=== PATIENT | male | born 1950 | race Caucasian/White ===

== ENCOUNTER 2017-07-11 15:01 | Observation (INO) | payer BC ==
[2017-07-11] MEDS ORDERED: Hydromorphone 1 mg/ml Ampule IV ONE (15:36)
[2017-07-11] MEDS ORDERED: Pepcid 20 MG VIAL IV ONE ×2 (15:36→16:38)
[2017-07-11] MEDS ORDERED: FEVERALL 650 MG PR STA (15:38)
[2017-07-11] MEDS ORDERED: Sodium Chloride 0.9% 1000 ML 1,000 ML IV SCH ×2 (15:45→21:01)
[2017-07-11 16:28] LABS: BASOPHIL % 0.1 % (0.0-0.4); Basophil (Absolute #) 0.01 (0-0.4); Eosinophil % 3.9 % (0.00-5.0); Eosinophil (Absolute #) 0.38 (0-0.5); Granulocyte Absolute (ANC) 7.37 (1.4-6.9); Granulocytes % 76.4 % (36.0-66.0); Hematocrit 42.2 % (42-50); Hemoglobin 14.2 gm/dl (12.5-18.0); Lymphocyte (Absolute #) 1.07 (1.0-4.6); Lymphocytes % 11.1 % (24.0-44.0); Mean Cell Volume 98.1 fl (78-100); Mean Corpuscular Hgb Concent. 33.6 g/dl (32-36); Mean Platelet Volume 10.2 fl (6-9.5); Monocyte (Absolute #) 0.82 (0.0-1.3); Monocytes % 8.5 % (0.0-12.0); Platelet Count 159 K/mm3 (150-450); Red Cell Distribution Width 13.3 % (11.5-14.0); White Blood Count 9.7 K/mm3 (4.0-10.5)
[2017-07-11 16:37] LABS: ALBUMIN 4.1 g/dL (3.5-5.0); ALKALINE PHOSPHATASE 66 U/L (38-126); ANION GAP 14.9 MEQ/L (5-15); BLOOD UREA NITROGEN 20 mg/dL (9-20); CHLORIDE 101 mmol/L (98-107); Calcium 9.4 mg/dL (8.4-10.2); Carbon Dioxide 26 mmol/L (22-30); Creatinine 1 1.27 mg/dL (0.66-1.25); Glucose 111 mg/dL (74-106); LIPASE 44 U/L (23-300); Potassium 4.8 mmol/L (3.5-5.1); SGOT/AST 19 U/L (17-59); SGPT/ALT 14 U/L (0-50); SODIUM 138 mmol/L (137-145); Total Protein 7.2 g/dL (6.3-8.2)
[2017-07-11] MEDS ORDERED: FEVERALL 650 MG ONE (16:38)
[2017-07-11] MEDS ORDERED: Sodium Chloride 0.9% 1000 ML 1,000 ML ONE (16:39)
[2017-07-11] MEDS ORDERED: DILAUDID 2 MG INJECTION ONE (16:39)
[2017-07-11] MEDS ORDERED: Zosyn 3.375GM/100 Ml D5W 3.375 GM/100 ML IVPB IV STA (17:26)
[2017-07-11] MEDS ORDERED: Zosyn 3.375GM/100 Ml D5W 3.375 GM/100 ML IVPB IV ONE (18:32)
--- NOTE | 2017-07-11 18:50 | ERPHSYRPT ---
- History of Present Illness Time Seen by Provider: 07/11/17 15:28 Historian: patient, family Patient Subjective Stated Complaint: abdominal pain right side Triage Nursing Assessment: pt to er c/o right sided abdominal pain, pt holding his side, reporting diarrhea and increased pain Physician History: CC: abd pain Hx: 67 y/o patient of Dr De Los Santos. Post remote bariatric surgery. He has right abd pain and back pain, worse today. Saw [employer] Trey this AM and had labs and neg flu and cxr. Pain for 2 days off and on, worse today. Fever to 102.7 last night. ALL: None Surg: Gastric bypass, bilateral knees, neck, shoulder Social: nonsmoker Timing/Duration: day(s) (2-3 ) Allergies/Adverse Reactions: adhesive Allergy (Verified 07/11/17 15:16) Home Medications: Albuterol Sulfate [Proair Hfa] 2 puff PO DAILY PRN PRN 06/21/14 [History] Alprazolam [Xanax 0.5 mg] 0.5 mg PO TID 06/21/14 [History] Jamie Cit/D3/K/Mag Ox/Stron/Bor [Theracal D2000 Tablet] 1 each PO DAILY 06/21/14 [ History] Multivitamin [Multivitamins] 1 tab PO DAILY 06/21/14 [History] Hx Tetanus, Diphtheria Vaccination/Date Given: No Hx Influenza Vaccination/Date Given: Yes Hx Pneumococcal Vaccination/Date Given: Yes - Review of Systems Constitutional: Fever, Chills, Fatigue, Malaise, Weakness Eyes: No Symptoms Ears, Nose, & Throat: No Symptoms Respiratory: No Cough, No Dyspnea Cardiac: No Chest Pain Abdominal/Gastrointestinal: Abdominal Pain, Nausea, No Vomiting, No Diarrhea Genitourinary Symptoms: No Dysuria Musculoskeletal: Back Pain Skin: No Rash Neurological: No Headache All Other Systems: Reviewed and Negative - Past Medical History Pertinent Past Medical History: No Neurological History: No Pertinent History ENT History: No Pertinent History Cardiac History: No Pertinent History Respiratory History: No Pertinent History Endocrine Medical History: No Pertinent History Musculoskeletal History: No Pertinent History GI Medical History: No Pertinent History History: No Pertinent History Psycho-Social History: Anxiety Male Reproductive Disorders: No Pertinent History Other Medical History: patient has had gastric bypass - Past Surgical History Past Surgical History: Yes Neuro Surgical History: No Pertinent History Cardiac: No Pertinent History Respiratory: No Pertinent History Gastrointestinal: No Pertinent History Genitourinary: No Pertinent History Musculoskeletal: Amputation Male Surgical History: No Pertinent History Other Surgical History: gastric bypass - Social History Smoking Status: Never smoker How long have you smoked: 35 years Exposure to second hand smoke: No Drug Use: none Patient Lives Alone: No - Nursing Vital Signs Nursing Vital Signs: Initial Vital Signs Temperature 98.2 F 07/11/17 15:18 Pulse Rate 98 H 07/11/17 15:18 Respiratory Rate 20 07/11/17 15:18 Blood Pressure 138/88 07/11/17 15:18 O2 Sat by Pulse Oximetry 100 07/11/17 15:18 Pain Scale Pain Intensity 4 - Physical Exam General Appearance: alert, obese Eye Exam: PERRL/EOMI Ears, Nose, Throat Exam: moist mucous membranes Neck Exam: normal inspection, non-tender, supple Respiratory Exam: normal breath sounds Cardiovascular Exam: regular rate/rhythm Gastrointestinal/Abdomen Exam: soft, tenderness (RUQ and epigastrum with some guarding), No mass Back Exam: normal inspection, No vertebral tenderness Extremity Exam: normal inspection, normal range of motion Neurologic Exam: alert, oriented x 3, cooperative, sensation nml, No motor deficits SpO2 Interpretation: normal SpO2: 98 Oxygen Delivery: Room Air - Course Nursing assessment & vital signs reviewed: Yes EKG Interpreted by Me: RATE (87), A-fib (flutter), NORMAL AXIS, prolonged QT interval (QTc 482), NORMAL QRS, Non-specific ST Changes Ordered Tests: Active Orders 24 hr Category Date Time Status Clean Catch Urine Specimen STAT Care 07/11/17 15:36 Active EKG-ER Only STAT Care 07/11/17 15:36 Active IV Insertion STAT Care 07/11/17 15:36 Active NPO (ED) STAT Care 07/11/17 15:36 Active ABDOMEN AND PELVIS W CONTRAST [CT] Stat Exams 07/11/17 15:38 Taken BLOOD CULTURE Stat Lab 07/11/17 16:05 Received CBC W DIFF Stat Lab 07/11/17 16:00 Completed CMP Stat Lab 07/11/17 16:00 Completed LIPASE Stat Lab 07/11/17 16:00 Completed Lactic Acid Stat Lab 07/11/17 16:15 Completed UA W/RFX UR CULTURE Stat Lab 07/11/17 15:37 Ordered Medication Summary Generic Name Dose Route Start Last Admin Trade Name Kulwinder PRN Reason Stop Dose Admin Sodium Chloride 1,000 mls @ 100 mls/hr 07/11/17 15:45 07/11/17 16:43 Sodium Chloride 0.9% 1000 Ml IV 08/10/17 15:44 100 mls/hr .Q10H WILFRIDO Administration Discontinued Medications Generic Name Dose Route Start Last Admin Trade Name Kulwinder PRN Reason Stop Dose Admin Acetaminophen 975 mg 07/11/17 15:38 07/11/17 16:43 Feverall 650 Mg OH 07/11/17 15:39 975 mg STAT STA Administration Acetaminophen Confirm 07/11/17 16:38 Feverall 650 Mg Administered 07/11/17 16:39 Dose 1,300 mg .ROUTE .STK-MED ONE Famotidine 20 mg 07/11/17 15:36 07/11/17 16:43 Pepcid 20 Mg Vial IV 07/11/17 15:37 20 mg STAT ONE Administration Famotidine Confirm 07/11/17 16:38 Pepcid 20 Mg Vial Administered 07/11/17 16:39 Dose 20 mg IV .STK-MED ONE Hydromorphone HCl 1 mg 07/11/17 15:36 07/11/17 16:54 Hydromorphone 1 Mg/Ml Ampule IV 07/11/17 15:37 1 mg STAT ONE Administration Hydromorphone HCl Confirm 07/11/17 16:39 Dilaudid 2 Mg Injection Administered 07/11/17 16:40 Dose 2 mg .ROUTE .STK-MED ONE Piperacillin Sod/Tazobactam Sod 3.375 gm in 100 mls @ 200 mls/hr 07/11/17 17: 26 07/11/17 18:43 Zosyn 3.375gm/100 Ml D5w IV 07/11/17 17:55 200 mls/hr STAT STA Administration Piperacillin Sod/Tazobactam Sod Confirm 07/11/17 18:32 Zosyn 3.375gm/100 Ml D5w Administered 07/11/17 18:33 Dose 3.375 gm in 100 mls @ ud IV .STK-MED ONE Lab/Rad Data: Laboratory Result Diagrams 07/11/17 16:00 07/11/17 16:00 Laboratory Results 07/11/17 07/11/17 07/11/17 Range/Units 16:15 16:00 16:00 WBC 9.7 (4.0-10.5) K/mm3 RBC 4.30 (4.1-5.6) M/mm3 Hgb 14.2 (12.5-18.0) gm/dl Hct 42.2 (42-50) % MCV 98.1 (78-100) fl MCH 33.0 H (26-32) pg MCHC 33.6 (32-36) g/dl RDW 13.3 (11.5-14.0) % Plt Count 159 (150-450) K/mm3 MPV 10.2 H (6-9.5) fl Gran % 76.4 H (36.0-66.0) % Eos # (Auto) 0.38 (0-0.5) Absolute Lymphs (auto) 1.07 (1.0-4.6) Absolute Monos (auto) 0.82 (0.0-1.3) Lymphocytes % 11.1 L (24.0-44.0) % Monocytes % 8.5 (0.0-12.0) % Eosinophils % 3.9 (0.00-5.0) % Basophils % 0.1 (0.0-0.4) % Absolute Granulocytes 7.37 H (1.4-6.9) Basophils # 0.01 (0-0.4) Sodium 138 (137-145) mmol/L Potassium 4.8 (3.5-5.1) mmol/L Chloride 101 (98-107) mmol/L Carbon Dioxide 26 (22-30) mmol/L Anion Gap 14.9 (5-15) MEQ/L BUN 20 (9-20) mg/dL Creatinine 1.27 H (0.66-1.25) mg/dL Estimated GFR > 60.0 ML/MIN Glucose 111 H (74-106) mg/dL Lactic Acid 1.1 (0.4-2.0) Calcium 9.4 (8.4-10.2) mg/dL Total Bilirubin 0.80 (0.2-1.3) mg/dL AST 19 (17-59) U/L ALT 14 (0-50) U/L Alkaline Phosphatase 66 (38-126) U/L Serum Total Protein 7.2 (6.3-8.2) g/dL Albumin 4.1 (3.5-5.0) g/dL Lipase 44 (23-300) U/L - Progress Progress Note: 07/11/17 18:49 cxrP: Stable nonacute hyperinflated chest with chronic features. CT abd/pelvis: jewel 5:35 PM 07/11/2017: No comps. New medial R lung base infil, ATX, & tiny effusion. Gastric bypass sx & fatty liver. Remaining abd/pel negative. jewel 5:36 PM 07/11/2017: Also punctate gallstones/gravel. 07/11/17 18:59 Prior bariatric surg at [facility]. No hx of atrial fib/flutter and no prior cardiac hx. Called Dr De Los Santos who will plac ein obs for IV abtx. Counseled pt/family regarding: lab results, diagnosis, need for follow-up, rad results - Departure Time of Disposition: 19:00 Departure Disposition: Observation Clinical Impression: RUQ abdominal pain, Atrial flutter, Pneumonia Condition: Fair Critical Care Time: No Referrals: ROSE DE LOS SANTOS [Primary Care Provider] -
[2017-07-11] MEDS ORDERED: Zithromax 500 MG/ 250 ML NaCl Premix 500 MG/250 ML IVPB IV STA (19:02)
[2017-07-11] MEDS ORDERED: Zithromax 500 MG/ 250 ML NaCl Premix 500 MG/250 ML IVPB IV ONE (19:08)
[2017-07-11 19:36] LABS: Appearance CLEAR (CLEAR); Leukocyte Esterase NEGATIVE (NEGATIVE)
[2017-07-11 19:37] LABS: Bilirubin NEGATIVE (NEGATIVE); Blood NEGATIVE Ery/ul (0-5); Glucose NEGATIVE (NEGATIVE); Ketones SMALL (NEGATIVE); Nitrite NEGATIVE (NEGATIVE); Protein,Urine Dip NEGATIVE (Negative); Urobilinogen NORMAL mg/dL (0-1)
[2017-07-11] MEDS ORDERED: TYLENOL 325 MG PO PRN (21:01)
[2017-07-11] MEDS ORDERED: PROVENTIL 2.5 MG/3 ML NEB IH ONE (21:22)
[2017-07-11] MEDS: PROVENTIL 2.5 MG/3 ML NEB IH SCH (21:29)
[2017-07-11] MEDS: DILAUDID 2 MG INJECTION IV PRN (21:50)
[2017-07-11] MEDS ORDERED: xanAX 0.5 MG PO ONE (22:00)
[2017-07-11] MEDS: Pepcid 20 MG VIAL IV SCH (23:30)
[2017-07-12] MEDS: Zosyn 3.375GM/100 Ml D5W 3.375 GM/100 ML IVPB IV SCH ×5 (00:09→23:41)
[2017-07-12] MEDS: DILAUDID 2 MG INJECTION IV PRN (04:54)
[2017-07-12] MEDS ORDERED: PROVENTIL Solution 2.5 MG/0.5 ML IH ONE (06:49)
[2017-07-12] MEDS: PROVENTIL 2.5 MG/3 ML NEB IH SCH ×4 (07:20→20:51)
[2017-07-12] MEDS: Advair Hfa 230/21 Mcg COMMON CANISTER IH SCH ×2 (07:20→20:52)
--- NOTE | 2017-07-12 08:28 | XRAY ---
Indication: Right upper quadrant pain. Fever. Multiple contiguous axial images obtained through the abdomen and pelvis using 80 cc Isovue 370 contrast only. Comparison: None Lung bases demonstrates posterior medial right lower lobe infiltrate/atelectasis and tiny effusion. Left base fibrosis/scarring. Heart is not enlarged. Previous scattered bypass surgery. Noncontrasted stomach and bowel loops appear nonobstructed. Normal appendix. Diffuse fatty liver. A few tiny punctate gallstones/gravel. 1.8 cm left renal cyst. Remaining liver, gallbladder, pancreas, spleen, adrenal glands, kidneys, ureters, and bladder appear unremarkable. Mild aortoiliac calcifications with minimal distal aortic ectasia. No pathologic retroperitoneal lymphadenopathy. Osseous structures demonstrates moderate/advanced multilevel degenerative spondylosis and mild dextrorotoscoliosis centered at the thoracolumbar junction. Impression: 1. Tiny gallstones/gravel. Gallbladder sonogram may yield further information. 2. Fatty liver and left renal cyst. 3. Right lower lobe infiltrate/atelectasis with tiny effusion. Correlate clinically. CT DI 23.68
[2017-07-12] MEDS ORDERED: Sodium Chloride 0.9% 10 ML FLUSH Syringe IV PRN (08:34)
[2017-07-12] MEDS ORDERED: xanAX 0.5 MG PO PRN (08:57)
[2017-07-12] MEDS: Motrin 100 MG/5 ML PO SCH ×3 (09:55→21:46)
[2017-07-12] MEDS: Pepcid 20 MG VIAL IV SCH ×2 (09:56→21:40)
[2017-07-12] MEDS: Singulair 10 MG PO SCH (09:57)
[2017-07-12] MEDS: Protonix 40MG Tablet PO SCH (09:57)
[2017-07-12] MEDS: CLARITIN 10 MG PO SCH (09:57)
[2017-07-12] MEDS ORDERED: NON-FORMULARY ITEM (Cetirizine Hcl [All Day Allergy] 10 MG) PO SCH (10:00)
[2017-07-12] MEDS ORDERED: NON-FORMULARY ITEM (Omeprazole [Omeprazole] 20 MG) PO SCH (10:00)
[2017-07-12] MEDS: Sodium Chloride 0.9% 10 ML FLUSH Syringe IV SCH ×2 (16:13→21:58)
[2017-07-12] MEDS ORDERED: Zithromax 500 MG/ 250 ML NaCl Premix 500 MG/250 ML IVPB IV SCH (22:00)
[2017-07-13 05:55] LABS: Hematocrit 38.5 % (42-50); Hemoglobin 12.6 gm/dl (12.5-18.0); Mean Cell Volume 100.5 fl (78-100); Mean Corpuscular Hgb Concent. 32.7 g/dl (32-36); Mean Platelet Volume 9.7 fl (6-9.5); Platelet Count 156 K/mm3 (150-450); Red Blood Count 3.83 M/mm3 (4.1-5.6); Red Cell Distribution Width 13.1 % (11.5-14.0)
[2017-07-13 06:15] LABS: ALBUMIN 3.5 g/dL (3.5-5.0); ALKALINE PHOSPHATASE 58 U/L (38-126); ANION GAP 12.7 MEQ/L (5-15); BLOOD UREA NITROGEN 17 mg/dL (9-20); CHLORIDE 107 mmol/L (98-107); Calcium 9.1 mg/dL (8.4-10.2); Carbon Dioxide 28 mmol/L (22-30); Creatinine 1 1.16 mg/dL (0.66-1.25); Glucose 108 mg/dL (74-106); Potassium 4.7 mmol/L (3.5-5.1); SGOT/AST 15 U/L (17-59); SGPT/ALT 14 U/L (0-50); SODIUM 143 mmol/L (137-145); Total Protein 6.6 g/dL (6.3-8.2)
[2017-07-13 06:20] LABS: Mean Corpuscular Hemoglobin 32.8 pg (26-32)
[2017-07-13] MEDS: Zosyn 3.375GM/100 Ml D5W 3.375 GM/100 ML IVPB IV SCH (06:31)
[2017-07-13] MEDS: Motrin 100 MG/5 ML PO SCH (06:32)
[2017-07-13] MEDS: Sodium Chloride 0.9% 10 ML FLUSH Syringe IV SCH (06:34)
[2017-07-13] MEDS: Advair Hfa 230/21 Mcg COMMON CANISTER IH SCH (06:53)
[2017-07-13] MEDS: PROVENTIL 2.5 MG/3 ML NEB IH SCH (06:53)
[2017-07-13 07:03] VITALS: PULSE 73; O2SAT 96
[2017-07-13 07:38] VITALS: BP 139/70
--- NOTE | 2017-07-13 08:39 | XRAY ---
Indication: Gallstones. Two-dimensional gallbladder sonogram performed. Comparison: None Gallbladder normally distended with several tiny gallstones in the dependent portion. No gallbladder wall thickening or pericholecystic fluid. Common bile duct measures 5.1 mm. No intrahepatic biliary distention. Remaining visualized portions of the liver, pancreas, and right kidney appear sonographically unremarkable. Right kidney measures 9.8 cm in length. No ascites. Impression: Cholelithiasis without cholecystitis or biliary distention.
[2017-07-13] MEDS: Protonix 40MG Tablet PO SCH (10:02)
[2017-07-13] MEDS: Singulair 10 MG PO SCH (10:02)
[2017-07-13] MEDS: CLARITIN 10 MG PO SCH (10:02)
[2017-07-13] MEDS: Pepcid 20 MG VIAL IV SCH (10:05)
--- NOTE | 2017-07-13 10:42 | PCM.DCORD ---
- Discharge Discharge Date: 07/13/17 Prescriptions: New Amox Tr/Potass Clav. 875 mg [Augmentin 875-125 Tablet] 875 mg PO BID 7 Days #14 tablet Azithromycin [Zithromax] 500 mg PO DAILY 1 Days #1 tablet Continue Alprazolam [Xanax 0.5 mg] 0.5 mg PO BIDPRN PRN PRN Reason: Anxiety Cetirizine HCl [All Day Allergy] 10 mg PO DAILY Omeprazole 20 mg PO DAILY Montelukast Sodium 10 mg [Singulair 10 MG] 10 mg PO DAILY Albuterol Sulfate 2.5 mg IH TID Additional Instructions: May return to work with no restriction Follow up with: ROSE BERNARD [Primary Care Provider] - 1 Week
--- NOTE | 2017-07-15 10:05 | SSS ---
DISCHARGE DIAGNOSIS: PNEUMONIA. HISTORY: The patient is a 67 year-old white male patient who presented to the emergency room with complaints of right sided flank abdominal pain. The patient was seen in the emergency room and found to have pneumonia. He was admitted to the hospital for treatment. The patient did run a fever up to 102.7F last evening. There was concern for him possibly having a gallbladder problem and he did have a stone in the gallbladder but it appears to be more likely that he is suffering from pneumonia. The patient was started on IV antibiotics. PAST MEDICAL/SURGICAL HISTORY: Significant for gastric bypass surgery. HOME MEDICATIONS: ProAir, Alprazolam, multivitamins. ALLERGIES: ADHESIVE TAPE. PHYSICAL EXAMINATION: Revealed a well nourished, well developed 67 year-old white male patient in no obvious distress at this time. VITAL SIGNS: On admission showed his temperature 97.9F, pulse 60, respiratory rate 17, blood pressure 140/75. O2 saturation 97% on room air. He did run a temperature up to 100F during his stay. HEENT: Normocephalic, atraumatic. Pupils equal, round reactive to light. Extraocular movements intact. Oropharynx is pink and moist. NECK: Supple without lymphadenopathy, thyromegaly or JVD. CHEST: Clear to auscultation with good air movement bilaterally. HEART: Regular rate and rhythm without murmurs, rubs or gallops. ABDOMEN: Soft. No palpable masses were felt. EXTREMITIES: Without clubbing, cyanosis or edema. NEUROLOGIC: The patient is alert and oriented x3. No focal deficits are noted. LAB DATA AND TESTS: His EKG showed a sinus rhythm. His blood work showed a metabolic panel with sugar 111, BUN 20, creatinine 1.27 and liver enzymes were normal. Electrolytes were normal. Lactic acid 1.1. His white blood cell count was 9,700. His hemoglobin was 14.2, PLT count 159,000. There appeared to be 76.4% granulocytes. UA was normal. His x-ray studies did show an infiltrate in the right base and possible stones. He had a gallbladder ultrasound showing gallbladder stones but no thickening of the gallbladder wall nor dilation of his gallbladder ducts. HOSPITAL COURSE: The patient after receiving antibiotics was much better by the next morning. He had been receiving Unasyn and Zithromax. He was felt to be ready for discharge home on the morning of 07/13/2017 on Zithromax 500 mg for one more day and Augmentin 875 mg twice a day for an additional week with follow up in the office in one week. He will continue to take his usual home medications otherwise.
== END 2017-07-13 11:13 | disposition home or self-care (01) ==
LOC: ED 15:01 → MED SURG 19:47
PROVIDERS: ADMIT Family Medicine; ATTEND Family Medicine
DX: J18.9 Pneumonia, unspecified organism (principal); Z98.84 Bariatric surgery status
CPT/HCPCS: 36000; 36415; 74177; 76705; 80053; 81002; 83605; 83690; 85025; 85027; 87040; 93005; 93268; 94150; 94640; 94760; 96360; 96361; 96365; 96367; 96374; 96375; 99285; G0378; 99283; J0456; J1170; J2543; A9270-GY

== ENCOUNTER 2019-07-06 12:04 | Inpatient (IN) | payer BC, MEDICARE ==
[2019-07-06] MEDS ORDERED: Sodium Chloride 0.9% 1000 ML 1,000 ML IV SCH (12:15)
[2019-07-06 12:47] LABS: Absolute Neutrophil Ct (ANC) 2.75 (1.4-6.9); BASOPHIL % 0.4 % (0.0-0.4); Basophil (Absolute #) 0.02 (0-0.4); Eosinophil % 8.4 % (0.00-5.0); Eosinophil (Absolute #) 0.41 (0-0.5); Hematocrit 43.1 % (42-50); Hemoglobin 14.2 gm/dl (12.5-18.0); Lymphocyte (Absolute #) 1.15 (1.0-4.6); Lymphocytes % 23.5 % (24.0-44.0); Mean Cell Volume 102.1 fl (78-100); Mean Corpuscular Hemoglobin 33.6 pg (26-32); Mean Corpuscular Hgb Concent. 32.9 g/dl (32-36); Mean Platelet Volume 10.2 fl (7.5-11.0); Monocyte (Absolute #) 0.56 (0.0-1.3); Monocytes % 11.5 % (0.0-12.0); Neutrophil % 56.2 % (36.0-66.0); Platelet Count 139 K/mm3 (150-450); Red Blood Count 4.22 M/mm3 (4.1-5.6); Red Cell Distribution Width 13.5 % (11.5-14.0); White Blood Count 4.9 K/mm3 (4.0-10.5)
[2019-07-06 12:58] LABS: Appearance CLEAR (CLEAR); Bilirubin NEGATIVE (NEGATIVE); Blood NEGATIVE Ery/ul (0-5); Glucose NEGATIVE (NEGATIVE); Ketones NEGATIVE (NEGATIVE); Leukocyte Esterase NEGATIVE (NEGATIVE); Nitrite NEGATIVE (NEGATIVE); Protein,Urine Dip NEGATIVE (Negative); Specific Gravity 1.006 (1.005-1.025); Urobilinogen NEGATIVE mg/dL (0-1)
--- NOTE | 2019-07-06 12:58 | XRAY ---
Indication: Fever and cough. Comparison: July 11, 2017. Portable apical lordotic chest again demonstrates minimal right base subsegmental atelectasis/scarring. Remaining heart and lungs unremarkable. Bony thorax intact again with osteopenia, degenerative changes, lower cervical fusion, and old left 7 rib fracture. Impression: Nonacute chest with chronic features.
[2019-07-06 13:21] LABS: INFLUENZA A NEGATIVE (NEGATIVE); INFLUENZA B NEGATIVE (NEGATIVE); RESPIRATORY SYNCTIAL VIRUS NEGATIVE (Negative)
[2019-07-06 13:25] LABS: PROTIME 11.7 SECONDS (8.83-12.87)
[2019-07-06 13:26] LABS: INR 1.03 (0.8-3.0)
--- NOTE | 2019-07-06 13:34 | ERPHSYRPT ---
- History of Present Illness Time Seen by Provider: 07/06/19 12:30 Patient Subjective Stated Complaint: pt here for increase sob for 3 dasy now with fever, weakness,aches. dry cough Triage Nursing Assessment: pt walked in, resp labored with excertion, skin w/d/p , moves all ext well, slight lower leg edema Physician History: Patient is a 69-year-old male who presents with a complaint of being sick for 3 days. He has had fever to 102 at home extreme shortness of breath weakness body aches and dry cough and it is noted that his respiratory rate increases dramatically with any exertion. He does work at the [place] [facility] [employer] [facility] and is exposed to the [place] [facility] population. Has a history of COPD. And frequent pneumonias. Timing/Duration: day(s) (3) Activities at Onset: none Severity of Dyspnea-Max: moderate Severity of Dyspnea-Current: moderate Possible Cause: occasional episodes (Has occasional episodes of exacerbation of his COPD and pneumonias) Modifying Factors: Improves With: coughing, exertion Associated Symptoms: cough, chest pain/discomfort (Planes of pain in the right chest area with a deep breath), painful breathing International travel in last 2 weeks: No Allergies/Adverse Reactions: adhesive Allergy (Verified 07/06/19 12:34) Home Medications: ALPRAZolam [Xanax 0.5 mg] 0.5 mg PO BIDPRN PRN 06/21/14 [History] Albuterol Sulfate 2.5 mg IH TID 07/11/17 [History] Cetirizine HCl [All Day Allergy] 10 mg PO DAILY 07/11/17 [History] Montelukast Sodium 10 mg [Singulair 10 MG] 10 mg PO DAILY 07/11/17 [History] Omeprazole 20 mg PO DAILY 07/11/17 [History] Hx Tetanus, Diphtheria Vaccination/Date Given: No Hx Influenza Vaccination/Date Given: Yes Hx Pneumococcal Vaccination/Date Given: Yes Immunizations Up to Date: Yes Travel Risk - International Travel Have you traveled outside of the country in past 3 weeks: No (n) Have you or anyone close to you been diagnosed with or: No Do your reside in a community with a known COVID-19 case?: Yes If Yes where:: [facility] - Coronavirus Screening Has patient experienced Coronavirus symptoms: Yes Symptoms experienced: fever(equal or > 100.4 F), respiratory symptoms ( i.e.Cought,shortness of breath), muscle pain, weakness Date of fever onset:: 07/04/19 Date of respiratory symptoms onset:: 07/04/19 - Review of Systems Constitutional: Fever, No Chills Eyes: No Symptoms Ears, Nose, & Throat: No Symptoms Respiratory: Dyspnea on Exertion (BLACK), No Cough, No Dyspnea Cardiac: Chest Pain (Right-sided chest pain), No Edema, No Syncope Abdominal/Gastrointestinal: No Abdominal Pain, No Nausea, No Vomiting, No Diarrhea Genitourinary Symptoms: No Dysuria Musculoskeletal: No Back Pain, No Neck Pain Skin: No Rash Neurological: No Dizziness, No Focal Weakness, No Sensory Changes Psychological: No Symptoms Endocrine: No Symptoms All Other Systems: Reviewed and Negative - Past Medical History Pertinent Past Medical History: No Neurological History: No Pertinent History ENT History: No Pertinent History Cardiac History: No Pertinent History Respiratory History: No Pertinent History Endocrine Medical History: No Pertinent History Musculoskeletal History: No Pertinent History GI Medical History: No Pertinent History History: No Pertinent History Psycho-Social History: Anxiety Male Reproductive Disorders: No Pertinent History Other Medical History: patient has had gastric bypass - Past Surgical History Past Surgical History: Yes Neuro Surgical History: No Pertinent History Cardiac: No Pertinent History Respiratory: No Pertinent History Gastrointestinal: No Pertinent History Genitourinary: No Pertinent History Musculoskeletal: Joint Replacement, Other Male Surgical History: No Pertinent History Other Surgical History: gastric bypass, Jae knee replacement, shoulder, neck - Social History Smoking Status: Former smoker How long have you smoked: 35 years Exposure to second hand smoke: No Drug Use: none Patient Lives Alone: No - Nursing Vital Signs Nursing Vital Signs: Initial Vital Signs Temperature 97.7 F 07/06/19 12:16 Pulse Rate 69 07/06/19 12:16 Respiratory Rate 32 H 07/06/19 12:16 Blood Pressure 138/73 07/06/19 12:16 O2 Sat by Pulse Oximetry 96 07/06/19 12:16 Pain Scale Pain Intensity 4 - Physical Exam General Appearance: no apparent distress, alert Eye Exam: PERRL/EOMI Neck Exam: normal inspection, supple Respiratory Exam: crackles/rales Cardiovascular/Chest Exam: normal heart sounds, regular rate/rhythm Abdominal/Gastrointestinal Exam: soft, No tenderness, No distention, No mass Extremity Exam: non-tender, normal range of motion, normal inspection, no calf tenderness, no pedal edema Neurologic Exam: alert, oriented x 3, cooperative, trial court justice II-XII nml as tested, sensation nml, No motor deficits Skin Exam: normal color, warm, No dry SpO2 Interpretation: normal SpO2: 95 O2 Delivery: Room Air - Course Nursing assessment & vital signs reviewed: Yes EKG Interpreted by Me: RATE ([id number]), NORMAL AXIS, NORMAL INTERVALS, NORMAL QRS, NORMAL ST-T - Radiology Exams Chest X-ray Interpretation: Teleradiologist Report, No Pneumonia Ordered Tests: Active Orders 24 hr Category Date Time Status [employer] Work[employer] STAT Care 07/06/19 12:40 Active EKG-ER Only STAT Care 07/06/19 12:11 Active IV Insertion STAT Care 07/06/19 12:11 Active IV Insertion-2nd Peripheral STAT Care 07/06/19 12:40 Active Pulse Oximetry (ED) STAT Care 07/06/19 12:40 Active CHEST 1 VIEW (PORTABLE) Stat Exams 07/06/19 12:11 Completed BLOOD CULTURE Stat Lab 07/06/19 12:40 Received CBC W DIFF Stat Lab 07/06/19 12:30 Completed CMP Stat Lab 07/06/19 12:30 Completed D-DIMER QUANTITATIVE Stat Lab 07/06/19 12:30 Completed Ferritin Stat Lab 07/06/19 12:30 Completed LDH-LACTATE DEHYDROGENASE Stat Lab 07/06/19 12:30 Completed Lactic Acid Stat Lab 07/06/19 12:11 Completed MAGNESIUM Stat Lab 07/06/19 12:30 Completed NT PRO BNP Stat Lab 07/06/19 12:30 Completed PROTIME WITH INR Stat Lab 07/06/19 12:30 Completed PTT Stat Lab 07/06/19 12:30 Completed TROPONIN Q3H Lab 07/06/19 12:30 Completed TROPONIN Q3H Lab 07/06/19 15:15 Ordered TROPONIN Q3H Lab 07/06/19 18:15 Ordered TROPONIN Q3H Lab 07/06/19 21:15 Ordered TROPONIN Q3H Lab 07/07/19 00:15 Ordered UA W/RFX UR CULTURE Stat Lab 07/06/19 12:30 Completed Medication Summary Generic Name Dose Route Start Last Admin Trade Name Freq PRN Reason Stop Dose Admin Sodium Chloride 1,000 mls @ 100 mls/hr 07/06/19 12:15 07/06/19 12:22 Sodium Chloride 0.9% 1000 Ml IV 08/05/19 12:14 100 mls/hr .Q10H WILFRIDO Administration Lab/Rad Data: Laboratory Result Diagrams 07/06/19 12:30 07/06/19 12:30 Laboratory Results 07/06/19 07/06/19 07/06/19 Range/Units 12:30 12:30 12:30 WBC (4.0-10.5) K/mm3 RBC (4.1-5.6) M/mm3 Hgb (12.5-18.0) gm/dl Hct (42-50) % MCV (78-100) fl MCH (26-32) pg MCHC (32-36) g/dl RDW (11.5-14.0) % Plt Count (150-450) K/mm3 MPV (7.5-11.0) fl Gran % (36.0-66.0) % Eos # (Auto) (0-0.5) Absolute Lymphs (auto) (1.0-4.6) Absolute Monos (auto) (0.0-1.3) Lymphocytes % (24.0-44.0) % Monocytes % (0.0-12.0) % Eosinophils % (0.00-5.0) % Basophils % (0.0-0.4) % Absolute Granulocytes (1.4-6.9) Basophils # (0-0.4) PT (8.83-12.87) SECONDS INR (0.8-3.0) APTT (24.1-36.1) SECONDS D-Dimer (215-500) ng/mL Sodium (137-145) mmol/L Potassium (3.5-5.1) mmol/L Chloride (98-107) mmol/L Carbon Dioxide (22-30) mmol/L Anion Gap (5-15) MEQ/L BUN (9-20) mg/dL Creatinine (0.66-1.25) mg/dL Estimated GFR ML/MIN Glucose (74-106) mg/dL Lactic Acid (0.4-2.0) Calcium (8.4-10.2) mg/dL Magnesium (1.6-2.3) mg/dL Ferritin (17.9-464) ng/mL Total Bilirubin (0.2-1.3) mg/dL AST (17-59) U/L ALT (0-50) U/L Alkaline Phosphatase (38-126) U/L Lactate Dehydrogenase (120-246) U/L Troponin I (0.000-0.034) ng/mL NT-Pro-B Natriuret Pep (0-900) pg/mL Serum Total Protein (6.3-8.2) g/dL Albumin (3.5-5.0) g/dL Urine Color YELLOW (YELLOW) Urine Appearance CLEAR (CLEAR) Urine pH 6.0 (5-6) Ur Specific [place] 1.006 (1.005-1.025) Urine Protein NEGATIVE (Negative) Urine Ketones NEGATIVE (NEGATIVE) Urine Blood NEGATIVE (0-5) Rell/ul Urine Nitrite NEGATIVE (NEGATIVE) Urine Bilirubin NEGATIVE (NEGATIVE) Urine Urobilinogen NEGATIVE (0-1) mg/dL Ur Leukocyte Esterase NEGATIVE (NEGATIVE) Urine WBC (Auto) NONE (0-5) /HPF Urine RBC (Auto) NONE (0-2) /HPF U Epithel Cells (Auto) NONE (FEW) /HPF Urine Bacteria (Auto) NONE (NEGATIVE) /HPF Urine Culture Reflexed NO (NO) Urine Glucose NEGATIVE (NEGATIVE) mg/dL Influenza Type A Ag NEGATIVE (NEGATIVE) Influenza Type B Ag NEGATIVE (NEGATIVE) RSV (PCR) NEGATIVE (Negative) Group A Strep Antibody NOT DETECTED (NEGATIVE) 07/06/19 07/06/19 07/06/19 Range/Units 12:30 12:30 12:30 WBC (4.0-10.5) K/mm3 RBC (4.1-5.6) M/mm3 Hgb (12.5-18.0) gm/dl Hct (42-50) % MCV (78-100) fl MCH (26-32) pg MCHC (32-36) g/dl RDW (11.5-14.0) % Plt Count (150-450) K/mm3 MPV (7.5-11.0) fl Gran % (36.0-66.0) % Eos # (Auto) (0-0.5) Absolute Lymphs (auto) (1.0-4.6) Absolute Monos (auto) (0.0-1.3) Lymphocytes % (24.0-44.0) % Monocytes % (0.0-12.0) % Eosinophils % (0.00-5.0) % Basophils % (0.0-0.4) % Absolute Granulocytes (1.4-6.9) Basophils # (0-0.4) PT 11.7 (8.83-12.87) SECONDS INR 1.03 (0.8-3.0) APTT 32.0 (24.1-36.1) SECONDS D-Dimer 486 (215-500) ng/mL Sodium 139 (137-145) mmol/L Potassium 4.7 (3.5-5.1) mmol/L Chloride 107 (98-107) mmol/L Carbon Dioxide 24 (22-30) mmol/L Anion Gap 12.3 (5-15) MEQ/L BUN 18 (9-20) mg/dL Creatinine 1.27 H (0.66-1.25) mg/dL Estimated GFR > 60.0 ML/MIN Glucose 107 H (74-106) mg/dL Lactic Acid (0.4-2.0) Calcium 9.3 (8.4-10.2) mg/dL Magnesium 1.5 L (1.6-2.3) mg/dL Ferritin 344 (17.9-464) ng/mL Total Bilirubin 0.50 (0.2-1.3) mg/dL AST 41 (17-59) U/L ALT 31 (0-50) U/L Alkaline Phosphatase 78 (38-126) U/L Lactate Dehydrogenase 197 (120-246) U/L Troponin I 0.014 (0.000-0.034) ng/mL NT-Pro-B Natriuret Pep 556 (0-900) pg/mL Serum Total Protein 7.3 (6.3-8.2) g/dL Albumin 4.2 (3.5-5.0) g/dL Urine Color (YELLOW) Urine Appearance (CLEAR) Urine pH (5-6) Ur Specific [place] (1.005-1.025) Urine Protein (Negative) Urine Ketones (NEGATIVE) Urine Blood (0-5) Rell/ul Urine Nitrite (NEGATIVE) Urine Bilirubin (NEGATIVE) Urine Urobilinogen (0-1) mg/dL Ur Leukocyte Esterase (NEGATIVE) Urine WBC (Auto) (0-5) /HPF Urine RBC (Auto) (0-2) /HPF U Epithel Cells (Auto) (FEW) /HPF Urine Bacteria (Auto) (NEGATIVE) /HPF Urine Culture Reflexed (NO) Urine Glucose (NEGATIVE) mg/dL Influenza Type A Ag (NEGATIVE) Influenza Type B Ag (NEGATIVE) RSV (PCR) (Negative) Group A Strep Antibody (NEGATIVE) 07/06/19 07/06/19 Range/Units 12:30 12:11 WBC 4.9 (4.0-10.5) K/mm3 RBC 4.22 (4.1-5.6) M/mm3 Hgb 14.2 (12.5-18.0) gm/dl Hct 43.1 (42-50) % MCV 102.1 H (78-100) fl MCH 33.6 H (26-32) pg MCHC 32.9 (32-36) g/dl RDW 13.5 (11.5-14.0) % Plt Count 139 L (150-450) K/mm3 MPV 10.2 (7.5-11.0) fl Gran % 56.2 (36.0-66.0) % Eos # (Auto) 0.41 (0-0.5) Absolute Lymphs (auto) 1.15 (1.0-4.6) Absolute Monos (auto) 0.56 (0.0-1.3) Lymphocytes % 23.5 L (24.0-44.0) % Monocytes % 11.5 (0.0-12.0) % Eosinophils % 8.4 H (0.00-5.0) % Basophils % 0.4 (0.0-0.4) % Absolute Granulocytes 2.75 (1.4-6.9) Basophils # 0.02 (0-0.4) PT (8.83-12.87) SECONDS INR (0.8-3.0) APTT (24.1-36.1) SECONDS D-Dimer (215-500) ng/mL Sodium (137-145) mmol/L Potassium (3.5-5.1) mmol/L Chloride (98-107) mmol/L Carbon Dioxide (22-30) mmol/L Anion Gap (5-15) MEQ/L BUN (9-20) mg/dL Creatinine (0.66-1.25) mg/dL Estimated GFR ML/MIN Glucose (74-106) mg/dL Lactic Acid 1.3 (0.4-2.0) Calcium (8.4-10.2) mg/dL Magnesium (1.6-2.3) mg/dL Ferritin (17.9-464) ng/mL Total Bilirubin (0.2-1.3) mg/dL AST (17-59) U/L ALT (0-50) U/L Alkaline Phosphatase (38-126) U/L Lactate Dehydrogenase (120-246) U/L Troponin I (0.000-0.034) ng/mL NT-Pro-B Natriuret Pep (0-900) pg/mL Serum Total Protein (6.3-8.2) g/dL Albumin (3.5-5.0) g/dL Urine Color (YELLOW) Urine Appearance (CLEAR) Urine pH (5-6) Ur Specific [place] (1.005-1.025) Urine Protein (Negative) Urine Ketones (NEGATIVE) Urine Blood (0-5) Rell/ul Urine Nitrite (NEGATIVE) Urine Bilirubin (NEGATIVE) Urine Urobilinogen (0-1) mg/dL Ur Leukocyte Esterase (NEGATIVE) Urine WBC (Auto) (0-5) /HPF Urine RBC (Auto) (0-2) /HPF U Epithel Cells (Auto) (FEW) /HPF Urine Bacteria (Auto) (NEGATIVE) /HPF Urine Culture Reflexed (NO) Urine Glucose (NEGATIVE) mg/dL Influenza Type A Ag (NEGATIVE) Influenza Type B Ag (NEGATIVE) RSV (PCR) (Negative) Group A Strep Antibody (NEGATIVE) - Progress Progress: unchanged Air Movement: good Blood Culture(s) Obtained: Yes Antibiotics given: Yes - Departure Departure Disposition: Observation Clinical Impression: COPD exacerbation Condition: Fair Critical Care Time: No
[2019-07-06 13:37] LABS: ALBUMIN 4.2 g/dL (3.5-5.0); ALKALINE PHOSPHATASE 78 U/L (38-126); ANION GAP 12.3 MEQ/L (5-15); BLOOD UREA NITROGEN 18 mg/dL (9-20); CHLORIDE 107 mmol/L (98-107); Calcium 9.3 mg/dL (8.4-10.2); Carbon Dioxide 24 mmol/L (22-30); Creatinine 1 1.27 mg/dL (0.66-1.25); Ferritin 344 ng/mL (17.9-464); Glucose 107 mg/dL (74-106); LDH-LACTATE DEHYDROGENASE 197 U/L (120-246); MAGNESIUM 1.5 mg/dL (1.6-2.3); NT PRO BNP 556 pg/mL (0-900); Potassium 4.7 mmol/L (3.5-5.1); SGOT/AST 41 U/L (17-59); SGPT/ALT 31 U/L (0-50); SODIUM 139 mmol/L (137-145); Total Protein 7.3 g/dL (6.3-8.2)
[2019-07-06] MEDS ORDERED: LEVOFLOXACIN 750MG/150ML D5W 750 MG/150 ML BAG IV SCH (17:00)
[2019-07-06] MEDS: ROCEPHIN 1 Gm-D5w 50 ml Bag** 1 G/50 ML IVPB IV SCH (18:09)
[2019-07-06] MEDS: TYLENOL 325 MG PO PRN (19:03)
[2019-07-06] MEDS: Advair Hfa 230/21 Mcg COMMON CANISTER IH SCH (20:25)
[2019-07-06] MEDS ORDERED: VENTOLIN COMMON CANISTER IH PRN (21:48)
[2019-07-07] MEDS: TYLENOL 325 MG PO PRN ×2 (04:27→19:06)
[2019-07-07 06:19] LABS: ALBUMIN 3.9 g/dL (3.5-5.0); ALKALINE PHOSPHATASE 65 U/L (38-126); ANION GAP 15.3 MEQ/L (5-15); BLOOD UREA NITROGEN 18 mg/dL (9-20); CHLORIDE 105 mmol/L (98-107); Calcium 8.6 mg/dL (8.4-10.2); Carbon Dioxide 23 mmol/L (22-30); Creatinine 1 1.21 mg/dL (0.66-1.25); Glucose 103 mg/dL (74-106); MAGNESIUM 1.4 mg/dL (1.6-2.3); Potassium 4.3 mmol/L (3.5-5.1); SGOT/AST 35 U/L (17-59); SGPT/ALT 26 U/L (0-50); SODIUM 140 mmol/L (137-145); Total Protein 6.9 g/dL (6.3-8.2)
[2019-07-07 06:20] LABS: Hematocrit 42.7 % (42-50); Hemoglobin 13.9 gm/dl (12.5-18.0); Mean Cell Volume 102.4 fl (78-100); Mean Corpuscular Hemoglobin 33.3 pg (26-32); Mean Corpuscular Hgb Concent. 32.6 g/dl (32-36); Mean Platelet Volume 10.2 fl (7.5-11.0); Platelet Count 119 K/mm3 (150-450); Red Blood Count 4.17 M/mm3 (4.1-5.6); Red Cell Distribution Width 13.4 % (11.5-14.0); White Blood Count 3.8 K/mm3 (4.0-10.5)
[2019-07-07] MEDS: Advair Hfa 230/21 Mcg COMMON CANISTER IH SCH (07:07)
[2019-07-07] MEDS: ROCEPHIN 1 Gm-D5w 50 ml Bag** 1 G/50 ML IVPB IV SCH (09:35)
--- NOTE | 2019-07-07 11:26 | PCM.HP ---
History of Present Illness - Chief Complaint Chief Complaint: copd exacerbation History of Present Illness: is a 69 year old male who presented to the ER yesterday with a 3 day history of cough, fever and fatigue with some shortness of breath with exertion. He has some underlying copd, is a former smoker. he does have obstructive sleep apnea and wears a cpap at night but is on no supplemental oxygen at home. his cough is nonproductive, he had sharp pain on the right yesterday with cough or deep breath but reports this is significantly improved and he feels better today than he did yesterday. - Review of Systems Constitutional: Fever, Chills Respiratory: Cough, Short Of Breath Cardiac: No Chest Pain, No Edema, No Syncope Abdominal/Gastrointestinal: No Abdominal Pain, No Nausea, No Vomiting, No Diarrhea Genitourinary Symptoms: No Dysuria Skin: No Rash All Other Systems: Reviewed and Negative Medications & Allergies Home Medications: Home Medication List ALPRAZolam [Xanax 0.5 mg] 0.5 mg PO TIDPRN PRN 06/21/14 [History Confirmed 07/05] Albuterol Sulfate 2.5 mg IH TID 07/11/17 [History Confirmed 07/06/19] Cetirizine HCl [All Day Allergy] 10 mg PO DAILY 07/11/17 [History Confirmed 06/21] Montelukast Sodium 10 mg [Singulair 10 MG] 10 mg PO DAILY 07/11/17 [History Confirmed 07/06/19] Omeprazole 20 mg PO DAILY 07/11/17 [History Confirmed 07/06/19] Amox Tr/Potass Clav. 875 mg [Augmentin 875-125 Tablet] 875 mg PO BID 7 Days #14 tablet 07/13/17 [Rx Confirmed 07/06/19] Azithromycin [Zithromax] 500 mg PO DAILY 1 Days #1 tablet 07/13/17 [Rx Confirmed 07/06/19] Atorvastatin Calcium 20 mg PO DAILY 07/06/19 [History Confirmed 07/06/19] Fluticasone/Salmeterol 230/21* [Advair Hfa 230/21 Mcg MDI] 2 inh IH BID 07/05 [History Confirmed 07/06/19] Furosemide 20 mg [Lasix 20 mg] 20 mg PO DAILY 07/06/19 [History Confirmed 07/06/19] Lisinopril 5 mg [Zestril 5 MG] 2.5 mg PO DAILY 07/06/19 [History Confirmed 07/06/19] Potassium Chloride [Klor-Con M20] 20 meq PO DAILY 07/06/19 [History Confirmed ] Temazepam 30 mg PO QHS 07/06/19 [History Confirmed 07/06/19] Allergies/Adverse Reactions: Allergies Allergy/AdvReac Type Severity Reaction Status Date / Time adhesive Allergy Verified 07/06/19 12:34 - Past Medical History Past Medical History: No Neurological History: No Pertinent History ENT History: No Pertinent History Cardiac History: High Cholesterol Respiratory History: COPD Endocrine Medical History: No Pertinent History Musculoskelatal History: No Pertinent History GI Medical History: GERD History: No Pertinent History Pyscho-Social History: Anxiety Male Reproductive Disorders: No Pertinent History Comment: patient has had gastric bypass, jae knee, cervical fusion, Atrial fibrillation - Past Surgical History Past Surgical History: Yes Neuro Surgical History: No Pertinent History Cardiac History: No Pertinent History Respiratory Surgery: No Pertinent History GI Surgical History: No Pertinent History Genitourinary Surgical Hx: No Pertinent History Musculskeletal Surgical Hx: Joint Replacement, Other Male Surgical History: No Pertinent History Other Surgical History: gastric bypass, Jae knee replacement, shoulder, neck - Social History Smoking Status: Former smoker How long have you smoked: 35 years Exposure to second hand smoke: No Alcohol: Daily Drug Use: none - Physical Exam Vital Signs: Vital Signs - 24 hr Temp Pulse Resp BP Pulse Ox 07/07/19 08:00 98.6 F 61 23 122/66 92 L 07/07/19 07:07 68 20 94 L 07/07/19 04:18 101.0 F 60 22 124/68 94 L 07/06/19 23:52 100.0 F 66 23 135/65 96 07/06/19 21:50 66 20 93 L 07/06/19 20:00 100.0 F 62 20 136/78 93 L 07/06/19 17:57 78 20 95 07/06/19 16:07 95 07/06/19 16:06 100.2 F 74 18 122/82 95 04/03/20 16:02 95 07/06/19 14:01 68 22 141/85 95 07/06/19 13:06 66 20 121/69 95 07/06/19 12:41 96 07/06/19 12:16 97.7 F 69 32 H 138/73 96 Oxygen-Last 24 hours Oxygen Flowrate (L/min)-RT 2 General Appearance: no apparent distress Neurologic Exam: alert, oriented x 3, cooperative Respiratory Exam: normal breath sounds, diminished breath sounds, No respiratory distress Cardiovascular Exam: regular rate/rhythm, normal heart sounds, normal peripheral pulses Gastrointestinal/Abdomen Exam: soft, normal bowel sounds, No tenderness, No mass Extremity Exam: normal inspection, normal range of motion, pelvis stable Skin Exam: normal color, warm, dry, No rash Results - Labs Lab/Micro Results: Lab Results-Last 24 Hours 07/06/19 07/06/19 07/06/19 Range/Units 12:11 12:30 12:30 WBC 4.9 (4.0-10.5) K/mm3 RBC 4.22 (4.1-5.6) M/mm3 Hgb 14.2 (12.5-18.0) gm/dl Hct 43.1 (42-50) % MCV 102.1 H (78-100) fl MCH 33.6 H (26-32) pg MCHC 32.9 (32-36) g/dl RDW 13.5 (11.5-14.0) % Plt Count 139 L (150-450) K/mm3 MPV 10.2 (7.5-11.0) fl Gran % 56.2 (36.0-66.0) % Eos # (Auto) 0.41 (0-0.5) Absolute Lymphs (auto) 1.15 (1.0-4.6) Absolute Monos (auto) 0.56 (0.0-1.3) Lymphocytes % 23.5 L (24.0-44.0) % Monocytes % 11.5 (0.0-12.0) % Eosinophils % 8.4 H (0.00-5.0) % Basophils % 0.4 (0.0-0.4) % Absolute Granulocytes 2.75 (1.4-6.9) Basophils # 0.02 (0-0.4) PT (8.83-12.87) SECONDS INR (0.8-3.0) APTT (24.1-36.1) SECONDS D-Dimer (215-500) ng/mL Sodium 139 (137-145) mmol/L Potassium 4.7 (3.5-5.1) mmol/L Chloride 107 (98-107) mmol/L Carbon Dioxide 24 (22-30) mmol/L Anion Gap 12.3 (5-15) MEQ/L BUN 18 (9-20) mg/dL Creatinine 1.27 H (0.66-1.25) mg/dL Estimated GFR > 60.0 ML/MIN Glucose 107 H (74-106) mg/dL Lactic Acid 1.3 (0.4-2.0) Calcium 9.3 (8.4-10.2) mg/dL Magnesium 1.5 L (1.6-2.3) mg/dL Ferritin 344 (17.9-464) ng/mL Total Bilirubin 0.50 (0.2-1.3) mg/dL AST 41 (17-59) U/L ALT 31 (0-50) U/L Alkaline Phosphatase 78 (38-126) U/L Lactate Dehydrogenase 197 (120-246) U/L Troponin I (0.000-0.034) ng/mL C-Reactive Prot, Quant (0.00-10.00) mg/L NT-Pro-B Natriuret Pep 556 (0-900) pg/mL Serum Total Protein 7.3 (6.3-8.2) g/dL Albumin 4.2 (3.5-5.0) g/dL Urine Color (YELLOW) Urine Appearance (CLEAR) Urine pH (5-6) Ur Specific [place] (1.005-1.025) Urine Protein (Negative) Urine Ketones (NEGATIVE) Urine Blood (0-5) Rell/ul Urine Nitrite (NEGATIVE) Urine Bilirubin (NEGATIVE) Urine Urobilinogen (0-1) mg/dL Ur Leukocyte Esterase (NEGATIVE) Urine WBC (Auto) (0-5) /HPF Urine RBC (Auto) (0-2) /HPF U Epithel Cells (Auto) (FEW) /HPF Urine Bacteria (Auto) (NEGATIVE) /HPF Urine Culture Reflexed (NO) Urine Glucose (NEGATIVE) mg/dL Influenza Type A Ag (NEGATIVE) Influenza Type B Ag (NEGATIVE) RSV (PCR) (Negative) Group A Strep Antibody (NEGATIVE) 07/06/19 07/06/19 07/06/19 Range/Units 12:30 12:30 12:30 WBC (4.0-10.5) K/mm3 RBC (4.1-5.6) M/mm3 Hgb (12.5-18.0) gm/dl Hct (42-50) % MCV (78-100) fl MCH (26-32) pg MCHC (32-36) g/dl RDW (11.5-14.0) % Plt Count (150-450) K/mm3 MPV (7.5-11.0) fl Gran % (36.0-66.0) % Eos # (Auto) (0-0.5) Absolute Lymphs (auto) (1.0-4.6) Absolute Monos (auto) (0.0-1.3) Lymphocytes % (24.0-44.0) % Monocytes % (0.0-12.0) % Eosinophils % (0.00-5.0) % Basophils % (0.0-0.4) % Absolute Granulocytes (1.4-6.9) Basophils # (0-0.4) PT 11.7 (8.83-12.87) SECONDS INR 1.03 (0.8-3.0) APTT 32.0 (24.1-36.1) SECONDS D-Dimer 486 (215-500) ng/mL Sodium (137-145) mmol/L Potassium (3.5-5.1) mmol/L Chloride (98-107) mmol/L Carbon Dioxide (22-30) mmol/L Anion Gap (5-15) MEQ/L BUN (9-20) mg/dL Creatinine (0.66-1.25) mg/dL Estimated GFR ML/MIN Glucose (74-106) mg/dL Lactic Acid (0.4-2.0) Calcium (8.4-10.2) mg/dL Magnesium (1.6-2.3) mg/dL Ferritin (17.9-464) ng/mL Total Bilirubin (0.2-1.3) mg/dL AST (17-59) U/L ALT (0-50) U/L Alkaline Phosphatase (38-126) U/L Lactate Dehydrogenase (120-246) U/L Troponin I 0.014 (0.000-0.034) ng/mL C-Reactive Prot, Quant 8.61 (0.00-10.00) mg/L NT-Pro-B Natriuret Pep (0-900) pg/mL Serum Total Protein (6.3-8.2) g/dL Albumin (3.5-5.0) g/dL Urine Color (YELLOW) Urine Appearance (CLEAR) Urine pH (5-6) Ur Specific [place] (1.005-1.025) Urine Protein (Negative) Urine Ketones (NEGATIVE) Urine Blood (0-5) Rell/ul Urine Nitrite (NEGATIVE) Urine Bilirubin (NEGATIVE) Urine Urobilinogen (0-1) mg/dL Ur Leukocyte Esterase (NEGATIVE) Urine WBC (Auto) (0-5) /HPF Urine RBC (Auto) (0-2) /HPF U Epithel Cells (Auto) (FEW) /HPF Urine Bacteria (Auto) (NEGATIVE) /HPF Urine Culture Reflexed (NO) Urine Glucose (NEGATIVE) mg/dL Influenza Type A Ag (NEGATIVE) Influenza Type B Ag (NEGATIVE) RSV (PCR) (Negative) Group A Strep Antibody (NEGATIVE) 07/06/19 07/06/19 07/06/19 Range/Units 12:30 12:30 12:30 WBC (4.0-10.5) K/mm3 RBC (4.1-5.6) M/mm3 Hgb (12.5-18.0) gm/dl Hct (42-50) % MCV (78-100) fl MCH (26-32) pg MCHC (32-36) g/dl RDW (11.5-14.0) % Plt Count (150-450) K/mm3 MPV (7.5-11.0) fl Gran % (36.0-66.0) % Eos # (Auto) (0-0.5) Absolute Lymphs (auto) (1.0-4.6) Absolute Monos (auto) (0.0-1.3) Lymphocytes % (24.0-44.0) % Monocytes % (0.0-12.0) % Eosinophils % (0.00-5.0) % Basophils % (0.0-0.4) % Absolute Granulocytes (1.4-6.9) Basophils # (0-0.4) PT (8.83-12.87) SECONDS INR (0.8-3.0) APTT (24.1-36.1) SECONDS D-Dimer (215-500) ng/mL Sodium (137-145) mmol/L Potassium (3.5-5.1) mmol/L Chloride (98-107) mmol/L Carbon Dioxide (22-30) mmol/L Anion Gap (5-15) MEQ/L BUN (9-20) mg/dL Creatinine (0.66-1.25) mg/dL Estimated GFR ML/MIN Glucose (74-106) mg/dL Lactic Acid (0.4-2.0) Calcium (8.4-10.2) mg/dL Magnesium (1.6-2.3) mg/dL Ferritin (17.9-464) ng/mL Total Bilirubin (0.2-1.3) mg/dL AST (17-59) U/L ALT (0-50) U/L Alkaline Phosphatase (38-126) U/L Lactate Dehydrogenase (120-246) U/L Troponin I (0.000-0.034) ng/mL C-Reactive Prot, Quant (0.00-10.00) mg/L NT-Pro-B Natriuret Pep (0-900) pg/mL Serum Total Protein (6.3-8.2) g/dL Albumin (3.5-5.0) g/dL Urine Color YELLOW (YELLOW) Urine Appearance CLEAR (CLEAR) Urine pH 6.0 (5-6) Ur Specific [place] 1.006 (1.005-1.025) Urine Protein NEGATIVE (Negative) Urine Ketones NEGATIVE (NEGATIVE) Urine Blood NEGATIVE (0-5) Rell/ul Urine Nitrite NEGATIVE (NEGATIVE) Urine Bilirubin NEGATIVE (NEGATIVE) Urine Urobilinogen NEGATIVE (0-1) mg/dL Ur Leukocyte Esterase NEGATIVE (NEGATIVE) Urine WBC (Auto) NONE (0-5) /HPF Urine RBC (Auto) NONE (0-2) /HPF U Epithel Cells (Auto) NONE (FEW) /HPF Urine Bacteria (Auto) NONE (NEGATIVE) /HPF Urine Culture Reflexed NO (NO) Urine Glucose NEGATIVE (NEGATIVE) mg/dL Influenza Type A Ag NEGATIVE (NEGATIVE) Influenza Type B Ag NEGATIVE (NEGATIVE) RSV (PCR) NEGATIVE (Negative) Group A Strep Antibody NOT DETECTED (NEGATIVE) 07/06/19 07/06/19 07/06/19 Range/Units 15:30 18:38 21:15 WBC (4.0-10.5) K/mm3 RBC (4.1-5.6) M/mm3 Hgb (12.5-18.0) gm/dl Hct (42-50) % MCV (78-100) fl MCH (26-32) pg MCHC (32-36) g/dl RDW (11.5-14.0) % Plt Count (150-450) K/mm3 MPV (7.5-11.0) fl Gran % (36.0-66.0) % Eos # (Auto) (0-0.5) Absolute Lymphs (auto) (1.0-4.6) Absolute Monos (auto) (0.0-1.3) Lymphocytes % (24.0-44.0) % Monocytes % (0.0-12.0) % Eosinophils % (0.00-5.0) % Basophils % (0.0-0.4) % Absolute Granulocytes (1.4-6.9) Basophils # (0-0.4) PT (8.83-12.87) SECONDS INR (0.8-3.0) APTT (24.1-36.1) SECONDS D-Dimer (215-500) ng/mL Sodium (137-145) mmol/L Potassium (3.5-5.1) mmol/L Chloride (98-107) mmol/L Carbon Dioxide (22-30) mmol/L Anion Gap (5-15) MEQ/L BUN (9-20) mg/dL Creatinine (0.66-1.25) mg/dL Estimated GFR ML/MIN Glucose (74-106) mg/dL Lactic Acid (0.4-2.0) Calcium (8.4-10.2) mg/dL Magnesium (1.6-2.3) mg/dL Ferritin (17.9-464) ng/mL Total Bilirubin (0.2-1.3) mg/dL AST (17-59) U/L ALT (0-50) U/L Alkaline Phosphatase (38-126) U/L Lactate Dehydrogenase (120-246) U/L Troponin I < 0.012 < 0.012 < 0.012 (0.000-0.034) ng/mL C-Reactive Prot, Quant (0.00-10.00) mg/L NT-Pro-B Natriuret Pep (0-900) pg/mL Serum Total Protein (6.3-8.2) g/dL Albumin (3.5-5.0) g/dL Urine Color (YELLOW) Urine Appearance (CLEAR) Urine pH (5-6) Ur Specific [place] (1.005-1.025) Urine Protein (Negative) Urine Ketones (NEGATIVE) Urine Blood (0-5) Rell/ul Urine Nitrite (NEGATIVE) Urine Bilirubin (NEGATIVE) Urine Urobilinogen (0-1) mg/dL Ur Leukocyte Esterase (NEGATIVE) Urine WBC (Auto) (0-5) /HPF Urine RBC (Auto) (0-2) /HPF U Epithel Cells (Auto) (FEW) /HPF Urine Bacteria (Auto) (NEGATIVE) /HPF Urine Culture Reflexed (NO) Urine Glucose (NEGATIVE) mg/dL Influenza Type A Ag (NEGATIVE) Influenza Type B Ag (NEGATIVE) RSV (PCR) (Negative) Group A Strep Antibody (NEGATIVE) 07/07/19 07/07/19 07/07/19 Range/Units 00:27 05:53 05:53 WBC 3.8 L (4.0-10.5) K/mm3 RBC 4.17 (4.1-5.6) M/mm3 Hgb 13.9 (12.5-18.0) gm/dl Hct 42.7 (42-50) % MCV 102.4 H (78-100) fl MCH 33.3 H (26-32) pg MCHC 32.6 (32-36) g/dl RDW 13.4 (11.5-14.0) % Plt Count 119 L (150-450) K/mm3 MPV 10.2 (7.5-11.0) fl Gran % (36.0-66.0) % Eos # (Auto) (0-0.5) Absolute Lymphs (auto) (1.0-4.6) Absolute Monos (auto) (0.0-1.3) Lymphocytes % (24.0-44.0) % Monocytes % (0.0-12.0) % Eosinophils % (0.00-5.0) % Basophils % (0.0-0.4) % Absolute Granulocytes (1.4-6.9) Basophils # (0-0.4) PT (8.83-12.87) SECONDS INR (0.8-3.0) APTT (24.1-36.1) SECONDS D-Dimer (215-500) ng/mL Sodium 140 (137-145) mmol/L Potassium 4.3 (3.5-5.1) mmol/L Chloride 105 (98-107) mmol/L Carbon Dioxide 23 (22-30) mmol/L Anion Gap 15.3 H (5-15) MEQ/L BUN 18 (9-20) mg/dL Creatinine 1.21 (0.66-1.25) mg/dL Estimated GFR > 60.0 ML/MIN Glucose 103 (74-106) mg/dL Lactic Acid (0.4-2.0) Calcium 8.6 (8.4-10.2) mg/dL Magnesium 1.4 L (1.6-2.3) mg/dL Ferritin (17.9-464) ng/mL Total Bilirubin 0.50 (0.2-1.3) mg/dL AST 35 (17-59) U/L ALT 26 (0-50) U/L Alkaline Phosphatase 65 (38-126) U/L Lactate Dehydrogenase (120-246) U/L Troponin I 0.013 (0.000-0.034) ng/mL C-Reactive Prot, Quant (0.00-10.00) mg/L NT-Pro-B Natriuret Pep (0-900) pg/mL Serum Total Protein 6.9 (6.3-8.2) g/dL Albumin 3.9 (3.5-5.0) g/dL Urine Color (YELLOW) Urine Appearance (CLEAR) Urine pH (5-6) Ur Specific [place] (1.005-1.025) Urine Protein (Negative) Urine Ketones (NEGATIVE) Urine Blood (0-5) Rell/ul Urine Nitrite (NEGATIVE) Urine Bilirubin (NEGATIVE) Urine Urobilinogen (0-1) mg/dL Ur Leukocyte Esterase (NEGATIVE) Urine WBC (Auto) (0-5) /HPF Urine RBC (Auto) (0-2) /HPF U Epithel Cells (Auto) (FEW) /HPF Urine Bacteria (Auto) (NEGATIVE) /HPF Urine Culture Reflexed (NO) Urine Glucose (NEGATIVE) mg/dL Influenza Type A Ag (NEGATIVE) Influenza Type B Ag (NEGATIVE) RSV (PCR) (Negative) Group A Strep Antibody (NEGATIVE) - Radiology Impressions Radiology Exams & Impressions: Radiology Procedures Category Date Time Status CHEST 1 VIEW (PORTABLE) Routine Exams 07/08/19 07:00 Ordered CHEST 1 VIEW (PORTABLE) Stat Exams 07/06/19 12:11 Completed - Other Procedures and Tests Respiratory Therapy 07/06/19 17:55 Respiratory Therapy Assessment DAILY 07/06/19 21:48 Oxygen Nasal Cannula 2 lpm Assessment/Plan (1) Cough with fever Current Visit: Yes Status: Acute Assessment & Plan: currently on levaquin and rocephin, will d/c rocephin as no obvious infiltrate on chest xray but does have some underlying copd. no obvious wheezing presently. repeat chest xray tomorrow and will monitor closely for worsening hypoxia/progression etc. discussed with him awaiting COVID-19 testing results but for now care is supportive. if progresses to higher oxygen needs would consider bipap to provide some PEEP to prevent atelectasis and promote recruitment. Code(s): R05 - COUGH; R50.9 - FEVER, UNSPECIFIED (2) COPD (chronic obstructive pulmonary disease) Current Visit: Yes Status: Acute
[2019-07-07] MEDS ORDERED: xanAX 0.5 MG PO PRN (12:25)
[2019-07-07] MEDS: Singulair 10 MG PO SCH ×2 (12:46→12:49)
[2019-07-07] MEDS: Protonix 40MG Tablet PO SCH (12:48)
[2019-07-07] MEDS: Zestril 5 MG PO SCH (12:49)
[2019-07-07] MEDS: Klor Con 10 MEQ PO SCH (12:49)
[2019-07-07] MEDS: CLARITIN 10 MG PO SCH (12:50)
[2019-07-07] MEDS: LASIX 20 MG PO SCH (12:50)
[2019-07-07] MEDS ORDERED: PROVENTIL 2.5 MG/3 ML NEB IH SCH (13:00)
[2019-07-07] MEDS: LEVOFLOXACIN 750MG/150ML D5W 750 MG/150 ML BAG IV SCH (18:42)
[2019-07-08 06:46] LABS: Absolute Neutrophil Ct (ANC) 2.45 (1.4-6.9); BASOPHIL % 0.3 % (0.0-0.4); Basophil (Absolute #) 0.01 (0-0.4); Eosinophil % 5.7 % (0.00-5.0); Eosinophil (Absolute #) 0.22 (0-0.5); Hematocrit 39.1 % (42-50); Hemoglobin 13.4 gm/dl (12.5-18.0); Lymphocyte (Absolute #) 0.85 (1.0-4.6); Lymphocytes % 22.1 % (24.0-44.0); Mean Cell Volume 99.2 fl (78-100); Mean Corpuscular Hgb Concent. 34.3 g/dl (32-36); Mean Platelet Volume 10.3 fl (7.5-11.0); Monocyte (Absolute #) 0.32 (0.0-1.3); Monocytes % 8.3 % (0.0-12.0); Neutrophil % 63.6 % (36.0-66.0); Platelet Count 100 K/mm3 (150-450); Red Blood Count 3.94 M/mm3 (4.1-5.6); Red Cell Distribution Width 13.2 % (11.5-14.0); White Blood Count 3.9 K/mm3 (4.0-10.5)
[2019-07-08 06:56] LABS: ANION GAP 13.9 MEQ/L (5-15); BLOOD UREA NITROGEN 19 mg/dL (9-20); CHLORIDE 104 mmol/L (98-107); Calcium 8.2 mg/dL (8.4-10.2); Carbon Dioxide 25 mmol/L (22-30); Creatinine 1 1.25 mg/dL (0.66-1.25); Glucose 102 mg/dL (74-106); Potassium 4.2 mmol/L (3.5-5.1); SODIUM 138 mmol/L (137-145)
[2019-07-08] MEDS: Protonix 40MG Tablet PO SCH (09:28)
[2019-07-08] MEDS: LASIX 20 MG PO SCH (09:28)
[2019-07-08] MEDS: Zestril 5 MG PO SCH (09:28)
[2019-07-08] MEDS: Klor Con 10 MEQ PO SCH (09:28)
[2019-07-08] MEDS: TYLENOL 325 MG PO PRN ×2 (09:28→23:10)
[2019-07-08] MEDS: CLARITIN 10 MG PO SCH (09:29)
--- NOTE | 2019-07-08 09:37 | PCM.NOTE ---
Date and Time: 07/08/1933 Subjective Assessment: patient reports he is feeling better, breathing is stable. has some cough and clear sputum production. tolerating po Objective Exam General Appearance: no apparent distress, alert Respiratory Exam: rhonchi (right), No respiratory distress, No accessory muscle use Cardiovascular Exam: regular rate/rhythm, normal heart sounds Gastrointestinal/Abdomen Exam: soft, No tenderness, No mass Extremity Exam: normal inspection, normal range of motion OBJECTIVE DATA Vital Signs: Vital Signs - 24 hr Temp Pulse Resp BP Pulse Ox 07/08/19 07:26 100.5 F 66 13 126/62 93 L 07/08/19 07:05 64 18 94 L 07/08/19 04:00 100.0 F 60 19 118/64 94 L 07/08/19 00:00 98.4 F 72 15 110/60 98 07/07/19 20:42 66 18 95 07/07/19 20:00 101.1 F 77 20 140/82 94 L 07/07/19 16:00 100.7 F 85 16 124/78 98 07/07/19 12:29 99.0 F 74 19 124/74 96 Oxygen-Last 24 hours Oxygen Flowrate (L/min)-RT 2 Pain Assessment - Last Documented Pain Intensity 5 Pain Scale Used FLACC Intake and Output: Intake & Output 07/05/19 07/06/19 07/07/19 07/08/19 11:59 11:59 11:59 11:59 Intake Total 1795 1110 Balance 1795 1110 Weight 143 kg 142.2 kg Lab Results: Lab Results-Last 24 Hours 07/08/19 07/08/19 Range/Units 05:30 05:30 WBC 3.9 L (4.0-10.5) K/mm3 RBC 3.94 L (4.1-5.6) M/mm3 Hgb 13.4 (12.5-18.0) gm/dl Hct 39.1 L (42-50) % MCV 99.2 (78-100) fl MCH 34.0 H (26-32) pg MCHC 34.3 (32-36) g/dl RDW 13.2 (11.5-14.0) % Plt Count 100 L (150-450) K/mm3 MPV 10.3 (7.5-11.0) fl Gran % 63.6 (36.0-66.0) % Eos # (Auto) 0.22 (0-0.5) Absolute Lymphs (auto) 0.85 L (1.0-4.6) Absolute Monos (auto) 0.32 (0.0-1.3) Lymphocytes % 22.1 L (24.0-44.0) % Monocytes % 8.3 (0.0-12.0) % Eosinophils % 5.7 H (0.00-5.0) % Basophils % 0.3 (0.0-0.4) % Absolute Granulocytes 2.45 (1.4-6.9) Basophils # 0.01 (0-0.4) Sodium 138 (137-145) mmol/L Potassium 4.2 (3.5-5.1) mmol/L Chloride 104 (98-107) mmol/L Carbon Dioxide 25 (22-30) mmol/L Anion Gap 13.9 (5-15) MEQ/L BUN 19 (9-20) mg/dL Creatinine 1.25 (0.66-1.25) mg/dL Estimated GFR > 60.0 ML/MIN Glucose 102 (74-106) mg/dL Calcium 8.2 L (8.4-10.2) mg/dL Radiology Exams: Radiology Procedures Category Date Time Status CHEST 1 VIEW (PORTABLE) Routine Exams 07/08/19 07:00 Taken CHEST 1 VIEW (PORTABLE) Stat Exams 07/06/19 12:11 Completed Assessment/Plan (1) Cough with fever Current Visit: Yes Status: Acute Assessment & Plan: awaiting covid-19 results Code(s): R05 - COUGH; R50.9 - FEVER, UNSPECIFIED (2) COPD (chronic obstructive pulmonary disease) Current Visit: Yes Status: Acute Assessment & Plan: continue oxygen support, levaquin emperically
[2019-07-08] MEDS ORDERED: NON-FORMULARY ITEM (Cetirizine Hcl [All Day Allergy] 10 MG) PO SCH (10:00)
[2019-07-08] MEDS ORDERED: NON-FORMULARY ITEM (Potassium Chloride [Klor-Con M20] 20 MEQ) PO SCH (10:00)
[2019-07-08] MEDS ORDERED: NON-FORMULARY ITEM (Omeprazole [Omeprazole] 20 MG) PO SCH (10:00)
[2019-07-08] MEDS: LEVOFLOXACIN 750MG/150ML D5W 750 MG/150 ML BAG IV SCH (17:42)
[2019-07-08] MEDS: PATIENT OWN MEDICATION IH SCH (18:59)
--- NOTE | 2019-07-08 20:30 | XRAY ---
Indication: Fever, cough, and short of breath. Comparison: July 06, 2019. Portable chest less inflated and slightly rotated with subjectively stable right mid to lower lung subsegmental atelectasis/scarring. Remaining heart and lungs unremarkable. No new cardiopulmonary abnormalities. Comment: Preliminary interpretation was made by [facility]. No critical discrepancy.
[2019-07-09] MEDS: TYLENOL 325 MG PO PRN ×2 (05:39→11:21)
[2019-07-09 07:21] VITALS: BP 126/61
[2019-07-09] MEDS: LASIX 20 MG PO SCH (08:55)
[2019-07-09] MEDS: CLARITIN 10 MG PO SCH (08:55)
[2019-07-09] MEDS: Klor Con 10 MEQ PO SCH (08:55)
[2019-07-09] MEDS: Singulair 10 MG PO SCH (08:55)
[2019-07-09] MEDS: Protonix 40MG Tablet PO SCH (08:56)
[2019-07-09] MEDS: Zestril 5 MG PO SCH (08:56)
[2019-07-09] MEDS: PATIENT OWN MEDICATION IH SCH (10:00)
[2019-07-09 11:13] VITALS: PULSE 68; O2SAT 91
--- NOTE | 2019-07-09 14:54 | DS ---
DISCHARGE DIAGNOSIS: HYPOXIA DUE TO COVID-19 INFECTION. HOSPITAL COURSE: The patient is a 69 year-old white male patient who presented to the emergency room feeling very short of breath. He was tested initially on entry and placed in the hospital on oxygen and IV fluid support. He did return positive for COVID-19. The patient since admission has done fairly well. He has been able to be up to the bathroom, using no more than 2 liters nasal cannula. We did check his oxygen saturations prior to discharge and was 83% on room air but up in the 90's to the 94% range on supplemental oxygen on 2 liters. After discussion with the patient he is made aware that he needs to go home and isolate for two weeks along with his who has been with him. He does have a saturation monitor again for his use at home. He was instructed that he may increase his oxygen as needed to keep his saturations over 90% but if he cannot keep his oxygen over 90% on 6 liters nasal cannula he is to call us or return to the hospital. The patient was also asked to take plenty of fluids in and move about the room at least every couple of hours to help prevent deep venous thrombosis development. The patient will continue to take his usual home medications otherwise and he was given my home phone number to call me at any time should he have questions or problems in the interim. He unfortunately works at the [employer] in [place] and they have been made aware of his infection.
== END 2019-07-09 17:37 | disposition home or self-care (01) | DRG 178 ==
LOC: ED 12:04 → MED SURG 15:55 → OBSVTOIN 07-07 11:22
PROVIDERS: ADMIT Family Medicine; ATTEND Family Medicine
DX: U07.1 COVID-19 (principal); J44.1 Chronic obstructive pulmonary disease with (acute) exacerbation; R09.02 Hypoxemia; R50.9 Fever, unspecified; R53.83 Other fatigue; G47.33 Obstructive sleep apnea (adult) (pediatric); E78.00 Pure hypercholesterolemia, unspecified; K21.9 Gastro-esophageal reflux disease without esophagitis; Z79.899 Other long term (current) drug therapy
CPT/HCPCS: 36000; 36415; 71045; 80048; 80053; 81001; 82728; 83605; 83615; 83735; 83880; 84484; 85025; 85027; 85379; 85610; 85730; 86140; 87040; 87631; 87651; 93005; 93041; 93268; 94640; 94760; 94762; 96360; 96361; 96365; 96368; 99285; J0696; J1956; U0002; A9270-GY; G0378

== ENCOUNTER 2019-07-15 06:10 | Emergency (ER) | payer BC, MEDICARE ==
[2019-07-15] MEDS ORDERED: Sodium Chloride 0.9% 1000 ML 1,000 ML ONE (06:32)
[2019-07-15] MEDS ORDERED: VERSED 5 MG/5 ML IV ONE ×2 (06:34→06:47)
[2019-07-15] MEDS ORDERED: Zemuron 100 MG/10 ML IV ONE ×2 (06:35→07:05)
[2019-07-15] MEDS ORDERED: Sodium Chloride 0.9% 1000 ML 1,000 ML IV STA (06:46)
[2019-07-15] MEDS ORDERED: Zithromax 500 MG/ 250 ML NaCl Premix 500 MG/250 ML IVPB IV STA (06:46)
[2019-07-15] MEDS ORDERED: Sodium Chloride 0.9% 250 ML 250 ML IV ONE (07:02)
--- NOTE | 2019-07-15 07:02 | ERPHSYRPT ---
- History of Present Illness Time Seen by Provider: 07/15/19 06:57 Source: patient, EMS Exam Limitations: no limitations Patient Subjective Stated Complaint: worsening shortness of breath for 2 days, COVID +ve Physician History: 69-year-old male patient was diagnosed 1 week ago, with positive and was discharged home after 4 days stays in the hospital as patient was stable since yesterday patient started having worsening shortness of breath so he was brought into the emergency room where his oxygen saturations were in low 80s and patient was very short of breath even on 6 L of oxygen. Patient denies any fever chills nausea vomiting generalized malaise. Due to low oxygen saturation patient was intubated in the emergency room and is planned to be transferred to [facility] for further ventilator care. Timing/Duration: today Activities at Onset: none Severity of Dyspnea-Max: severe Severity of Dyspnea-Current: severe Associated Symptoms: denies symptoms International travel in last 2 weeks: No Allergies/Adverse Reactions: adhesive Allergy (Verified 07/06/19 12:34) Home Medications: ALPRAZolam [Xanax 0.5 mg] 0.5 mg PO TIDPRN PRN 06/21/14 [History] Albuterol Sulfate 2.5 mg IH TID 07/11/17 [History] Cetirizine HCl [All Day Allergy] 10 mg PO DAILY 07/11/17 [History] Montelukast Sodium 10 mg [Singulair 10 MG] 10 mg PO DAILY 07/11/17 [History] Omeprazole 20 mg PO DAILY 07/11/17 [History] Atorvastatin Calcium 20 mg PO DAILY 07/06/19 [History] Fluticasone/Salmeterol 230/21* [Advair Hfa 230/21 Mcg MDI] 2 inh IH BID 07/05 [History] Furosemide 20 mg [Lasix 20 mg] 20 mg PO DAILY 07/06/19 [History] Lisinopril 5 mg [Zestril 5 MG] 2.5 mg PO DAILY 07/06/19 [History] Potassium Chloride [Klor-Con M20] 20 meq PO DAILY 07/06/19 [History] Temazepam 30 mg PO QHS 07/06/19 [History] Hx Tetanus, Diphtheria Vaccination/Date Given: No Hx Influenza Vaccination/Date Given: Yes Hx Pneumococcal Vaccination/Date Given: Yes Travel Risk - International Travel Have you traveled outside of the country in past 3 weeks: No Have you or anyone close to you been diagnosed with or: Yes Do your reside in a community with a known COVID-19 case?: Yes - Coronavirus Screening Has patient experienced Coronavirus symptoms: Yes Symptoms experienced: respiratory symptoms (i.e.Cought,shortness of breath) - Review of Systems Constitutional: No Fever, No Chills Eyes: No Symptoms Ears, Nose, & Throat: No Symptoms Respiratory: Cough, Dyspnea, Dyspnea on Exertion (BLACK), Wheezing Cardiac: No Chest Pain, No Edema, No Syncope Abdominal/Gastrointestinal: No Abdominal Pain, No Nausea, No Vomiting, No Diarrhea Genitourinary Symptoms: No Dysuria Musculoskeletal: No Back Pain, No Neck Pain Skin: No Rash Neurological: No Dizziness, No Focal Weakness, No Sensory Changes Psychological: No Symptoms Endocrine: No Symptoms All Other Systems: Reviewed and Negative - Past Medical History Pertinent Past Medical History: No Neurological History: No Pertinent History ENT History: No Pertinent History Cardiac History: High Cholesterol Respiratory History: COPD Endocrine Medical History: No Pertinent History Musculoskeletal History: No Pertinent History GI Medical History: GERD History: No Pertinent History Psycho-Social History: Anxiety Male Reproductive Disorders: No Pertinent History Other Medical History: patient has had gastric bypass, jae knee, cervical fusion , Atrial fibrillation - Past Surgical History Past Surgical History: Yes Neuro Surgical History: No Pertinent History Cardiac: No Pertinent History Respiratory: No Pertinent History Gastrointestinal: No Pertinent History Genitourinary: No Pertinent History Musculoskeletal: Joint Replacement, Other Male Surgical History: No Pertinent History Other Surgical History: gastric bypass, Jae knee replacement, shoulder, neck - Social History Smoking Status: Former smoker How long have you smoked: 35 years Exposure to second hand smoke: No Drug Use: none Patient Lives Alone: No - Physical Exam General Appearance: severe distress Eye Exam: PERRL/EOMI Neck Exam: normal inspection Respiratory Exam: diminished breath sounds, accessory muscle use, crackles/rales , rhonchi, wheezing Cardiovascular/Chest Exam: JVD Abdominal/Gastrointestinal Exam: soft Neurologic Exam: alert Skin Exam: normal color SpO2 Interpretation: hypoxic, ABG ordered O2 Delivery: Non-rebreather - Course Nursing assessment & vital signs reviewed: Yes - Radiology Exams Chest X-ray Interpretation: Reviewed by me (tube is in place) Ordered Tests: Active Orders 24 hr Category Date Time Status CHEST 1 VIEW (PORTABLE) Stat Exams 07/15/19 06:47 Ordered ARTERIAL BLOOD GASES Stat Lab 07/15/19 06:46 Ordered CBC W DIFF Stat Lab 07/15/19 06:46 Ordered CMP Stat Lab 07/15/19 06:46 Ordered Lactic Acid Stat Lab 07/15/19 06:46 Ordered TROPONIN Q3H Lab 07/15/19 07:00 Ordered TROPONIN Q3H Lab 07/15/19 10:00 Ordered TROPONIN Q3H Lab 07/15/19 13:00 Ordered TROPONIN Q3H Lab 07/15/19 16:00 Ordered TROPONIN Q3H Lab 07/15/19 19:00 Ordered Medication Summary Generic Name Dose Route Start Last Admin Trade Name Freq PRN Reason Stop Dose Admin Sodium Chloride 1,000 mls @ 999 mls/hr 07/15/19 06:46 Sodium Chloride 0.9% 1000 Ml IV 07/15/19 07:46 .Q1H1M STA Azithromycin 500 mg in 250 mls @ 250 mls/hr 07/15/19 06:46 Zithromax 500 Mg/ 250 Ml Nacl Premix IV 07/15/19 07:45 STAT STA Discontinued Medications Generic Name Dose Route Start Last Admin Trade Name Freq PRN Reason Stop Dose Admin Sodium Chloride Confirm 07/15/19 06:32 Sodium Chloride 0.9% 1000 Ml Administered 07/15/19 06:33 Dose 1,000 mls @ ud .ROUTE .STK-MED ONE Sodium Chloride Confirm 07/15/19 07:02 Sodium Chloride 0.9% 250 Ml Administered 07/15/19 07:03 Dose 250 mls @ ud IV .STK-MED ONE - Progress Progress: unchanged Air Movement: fair Blood Culture(s) Obtained: No Antibiotics given: No Discussed with DrFrancisco: Other (Dr. morel) Will see patient in: other ([facility] ICU) - Departure Departure Disposition: Transfer ([facility]) Clinical Impression: COVID-19, Acute respiratory disease due to 2019 novel coronavirus Condition: Fair Critical Care Time: Yes Critical Care Time(excluding separately billable procedures): Critical 30-74 mins Referrals: ROSE BERNARD [Primary Care Provider] -
[2019-07-15] MEDS ORDERED: Versed 50 MG/ 10 Ml MDV IV ONE (07:08)
[2019-07-15] MEDS ORDERED: Versed 50 MG/ 10 Ml MDV*** 50 MG in Sodium Chloride 0.9% 250 ML 250 ML IV ONE (07:08)
[2019-07-15 07:10] LABS: Hematocrit 43.2 % (42-50); Hemoglobin 14.2 gm/dl (12.5-18.0); Mean Cell Volume 101.2 fl (78-100); Mean Corpuscular Hemoglobin 33.3 pg (26-32); Mean Corpuscular Hgb Concent. 32.9 g/dl (32-36); Mean Platelet Volume 10.8 fl (7.5-11.0); Platelet Count 130 K/mm3 (150-450); Red Blood Count 4.27 M/mm3 (4.1-5.6); Red Cell Distribution Width 13.2 % (11.5-14.0); White Blood Count 6.2 K/mm3 (4.0-10.5)
[2019-07-15] MEDS ORDERED: FEVERALL 650 MG ONE (07:30)
[2019-07-15] MEDS ORDERED: FEVERALL 650 MG PR ONE (07:30)
[2019-07-15 07:31] LABS: ALBUMIN 3.5 g/dL (3.5-5.0); ALKALINE PHOSPHATASE 64 U/L (38-126); ANION GAP 14.7 MEQ/L (5-15); BLOOD UREA NITROGEN 27 mg/dL (9-20); CHLORIDE 113 mmol/L (98-107); Calcium 8.8 mg/dL (8.4-10.2); Carbon Dioxide 22 mmol/L (22-30); Creatinine 1 1.17 mg/dL (0.66-1.25); Glucose 133 mg/dL (74-106); SGOT/AST 153 U/L (17-59); SGPT/ALT 81 U/L (0-50); SODIUM 145 mmol/L (137-145); Total Protein 7.1 g/dL (6.3-8.2)
[2019-07-15 07:32] LABS: Potassium 4.9 mmol/L (3.5-5.1)
[2019-07-15 07:36] VITALS: O2SAT 92
[2019-07-15 07:37] LABS: ATYPICAL LYMPHS 4 %; BAND 3 % (0.0-2.0); Lymphocytes 11 % (24-44); Monocyte 3 % (0.0-12.0); Neutrophils 79 % (36.-66.); Platelet Estimate NORMAL (NORMAL); Total Cells Counted 100
[2019-07-15] MEDS ORDERED: Zithromax 500 MG/ 250 ML NaCl Premix 500 MG/250 ML IVPB IV ONE (07:40)
[2019-07-15 07:46] LABS: A-aADO2 225; ABG HEMOGLOBIN 14.5; ARTERIAL BLD GAS O2 SATURATION 89.6 % (95-100); ARTERIAL BLOOD GAS BASE EXCESS -3.2 (-2.0-2.0); ARTERIAL BLOOD GAS FIO2 44 %; ARTERIAL BLOOD GAS PCO2 28 mmHg (35-45); ARTERIAL BLOOD GAS PO2 54 mmHg (75-100); ARTERIAL BLOOD GAS pH 7.45 (7.35-7.45); CARBOXYHEMOGLOBIN 0.7 % THgb (0.0-6.9); HCO3- 19.5 (22-28); HGB O2 SAT 88.6 g/dF (94-100); Lactic Acid 1.4 (0.4-2.0); Methhemoglobin 0.4 % (1.4-1.5); paO2 pAO1 0.19
[2019-07-15 07:47] LABS: ABG SITE LEFT BRACHIAL; ALLEN TEST OK? yes
[2019-07-15 07:49] LABS: A-aADO2 553; ABG HEMOGLOBIN 14.9; ARTERIAL BLD GAS O2 SATURATION 97.6 % (95-100); ARTERIAL BLOOD GAS BASE EXCESS -5.3 (-2.0-2.0); ARTERIAL BLOOD GAS FIO2 100 %; ARTERIAL BLOOD GAS PCO2 44 mmHg (35-45); ARTERIAL BLOOD GAS PO2 105 mmHg (75-100); ARTERIAL BLOOD GAS VENT MODE A/C; ARTERIAL BLOOD GAS pH 7.29 (7.35-7.45); CARBOXYHEMOGLOBIN 1.4 % THgb (0.0-6.9); HCO3- 21.2 (22-28); HGB O2 SAT 95.9 g/dF (94-100); Methhemoglobin 0.4 % (1.4-1.5); paO2 pAO1 0.16
[2019-07-15 07:50] LABS: ABG SITE LEFT BRACHIAL; ALLEN TEST OK? yes
[2019-07-15 08:55] VITALS: BP 181/94; PULSE 92
--- NOTE | 2019-07-15 08:57 | XRAY ---
Indication: Short of breath. COVID 19. Comparison: July 08, 2019. Portable chest again rotated with new endotracheal tube tip 3.5 cm above melina and new NG tube tip midesophagus approximately T6-T7 level. Lungs remain slightly underinflated with new diffuse patchy airspace disease right greater than left and small bibasilar effusions. Heart is not enlarged.
== END 2019-07-15 08:05 | disposition short-term general hospital (02) ==
LOC: ED 06:10
DX: U07.1 COVID-19 (principal); J06.9 Acute upper respiratory infection, unspecified; R05 Cough; E78.00 Pure hypercholesterolemia, unspecified; Z79.899 Other long term (current) drug therapy; J44.9 Chronic obstructive pulmonary disease, unspecified; K21.9 Gastro-esophageal reflux disease without esophagitis; F41.9 Anxiety disorder, unspecified; Z86.79 Personal history of other diseases of the circulatory system
CPT/HCPCS: 31500; 36415; 36600; 51702; 71045; 80053; 82375; 82803; 83605; 84484; 85025; 94002; 94770; 94799; 96365; 96367; 96374; 96375; 99285; 99291; J0456; J2250; A9270-GY